=== PATIENT | male | born 1955 | race Caucasian/White ===

== ENCOUNTER 2017-11-08 07:52 | Outpatient (CLI) | payer OTHER ==
--- NOTE | 2017-11-08 08:49 | CT ---
CT CHEST NONCONTRAST PULMONARY LUNG SCAN: History: Tobacco abuse. FINDINGS: Lungs are well inflated. No parenchymal nodules are apparent. No pleural fluid or pneumothorax. Lack of contrast limits evaluation of the mediastinum. Scattered nonenlarged lymph nodes are apparent . There is calcification in the arterial structures. Old posterior rib fractures are apparent. The inferior most images show multiple lobular low density lesions arising from the cortex of the kid neys. A hyperdense cystic lesion at the lateral cortex of the left kidney is partially visualized. Th ere is suggestion of a soft tissue density mass at the superior pole of the left kidney that warrants further evaluation. IMPRESSION: 1. Lung-Rads cat 1. No nodules. Routine low dose follow up is suggested. 2. Multiple indeterminate, incompletely evaluated renal lesions as detailed above. Further evaluation needed. Lung-Rads S-4. Please consider dedicated CT of the kidneys, with and without contrast, for better characterization o f possible soft tissue masses. Atherosclerosis. Code T POS: JOSE RAMON
== END 2017-11-08 07:53 | disposition home or self-care (01) ==
LOC: CT 07:52
PROVIDERS: ATTEND Student in an Organized Health Care Education/Training Program
DX: Z12.2 Encounter for screening for malignant neoplasm of respiratory organs (principal); Z87.891 Personal history of nicotine dependence
CPT/HCPCS: G0297

== ENCOUNTER 2020-03-17 13:11 | Outpatient (CLI) | payer MEDICARE, MEDICAID ==
--- NOTE | 2020-03-17 14:27 | BD ---
BONE DENSITOMETRY USING DEXA: HISTORY: A 64-year-old male with a family history of osteoporosis in brother. FINDINGS: Lumbar Spine: BMD (g/cm2) L1 0.990 T-Score: -0.8 Z-Score: 0.0 L2 1.184 T-Score: 0.8 Z-Score: 1.6 L3 1.235 T-Score: 1.2 Z-Score: 2.0 L4 1.269 T-Score: 1.6 Z-Score: 2.5 L1-L4 1.178 T-Score: 0.8 Z-Score: 1.6 Femoral Neck: 0.624 T-Score: -2.2 Z-Score: -1.2 Total Femur: 0.903 T-Score: -0.9 Z-Score: -0.3 The 10-year fracture risk for a major osteoporotic fracture is 8.4% and for a hip fracture is 2.1%. Impression: Osteopenia. POS: [facility]
== END 2020-03-17 13:12 | disposition home or self-care (01) ==
LOC: BICMAMMO 13:11
PROVIDERS: ATTEND Family Medicine
DX: Z13.820 Encounter for screening for osteoporosis (principal); M85.859 Other specified disorders of bone density and structure, unspecified thigh; Z82.62 Family history of osteoporosis
CPT/HCPCS: 77080